=== PATIENT | female | born 1965 | race Caucasian/White ===

== ENCOUNTER 2022-07-02 07:26 | Emergency (ER) | payer OTHER ==
[~2022-07-02] VITALS: Ht 157.5 cm; Wt 70.3 kg
[~2022-07-02 07:26] MED LIST: Calcium 1,2001 EACH PO; ERGO400 PO; IBUP400 PO; Lysine1000 MG PO; MULVITMIND PO
[2022-07-02] MEDS ORDERED: Silvadene20 GM TOP (08:27)
[2022-07-02] MEDS ORDERED: BACITO TOP (08:27)
== END 2022-07-02 08:57 | disposition home or self-care (01) ==
LOC: ER 07:26
DX: T22.211A Burn of second degree of right forearm, initial encounter (principal); T20.20XA Burn of second degree of head, face, and neck, unspecified site, initial encounter; T31.0 Burns involving less than 10% of body surface; X08.8XXA Exposure to other specified smoke, fire and flames, initial encounter; Z88.0 Allergy status to penicillin; Z91.038 Other insect allergy status; F17.210 Nicotine dependence, cigarettes, uncomplicated; F17.200 Nicotine dependence, unspecified, uncomplicated; Z79.899 Other long term (current) drug therapy
CPT/HCPCS: A9270